=== PATIENT | female | born 1960 | race African-American/Black ===

== ENCOUNTER 2017-04-14 19:12 | Inpatient (IN) | payer OTHER ==
[~2017-04-14] VITALS: Ht 172.7 cm; Wt 120.8 kg
[2017-04-14 20:17] LABS: BASOPHIL % 1.9 % (0-2); PLATELET COUNT 190 x10^3mcL (130-400)
[2017-04-14 20:18] LABS: RED CELL DISTRIBUTION WIDTH 17.3 % (11.5-14.5)
[2017-04-14 20:37] LABS: BILIRUBIN TOTAL 0.3 mg/dL (0.20-1.00); CALCIUM 8.8 mg/dL (8.5-10.1); CARBON DIOXIDE 26.7 mmol/L (21-32); CREATININE SERUM 1.1 mg/dL (0.6-1.0); POTASSIUM SERUM 3.7 mmol/L (3.5-5.1); TOTAL PROTEIN, SERUM 7.3 g/dL (6.4-8.2)
[2017-04-14 20:47] LABS: ALBUMIN 3.1 g/dL (3.4-5.0)
[2017-04-14 20:56] LABS: CK-MB 0.5 ng/mL (0-3.6)
[2017-04-14 21:45] VITALS: BP 181/110
[2017-04-14 22:57] LABS: AMYLASE 38 U/L (25-115); CHOLESTEROL 177 mg/dL (<200); CHOLESTEROL/HDL RATIO 4.8; HDL CHOLESTEROL 37 mg/dL (40-60); LIPASE 141 IU/L (73-393); MAGNESIUM 1.8 mg/dL (1.8-2.4); PHOSPHOROUS 2.9 mg/dL (2.5-4.9)
[2017-04-14 22:59] LABS: TRIGLYCERIDES 540 mg/dL (<150)
[2017-04-14 23:06] LABS: FREE T4 1.18 ng/dL (0.76-1.46); T4(THYROXINE) 8.3 ug/dL (4.7-13.3)
[2017-04-14 23:51] LABS: T3 TOTAL 1.02 ng/mL
[2017-04-15 08:54] LABS: CALCIUM 8.4 mg/dL (8.5-10.1); CARBON DIOXIDE 24.9 mmol/L (21-32); CHLORIDE SERUM 105 mmol/L (98-107); CREATININE SERUM 0.8 mg/dL (0.6-1.0); GFR1 > 60 mL/min; GLUCOSE SERUM 352 mg/dL (74-106); POTASSIUM SERUM 3.6 mmol/L (3.5-5.1); SODIUM SERUM 140 mmol/L (136-145)
[2017-04-15 08:55] LABS: BASOPHIL % 0.4 % (0-2); PLATELET COUNT 193 x10^3mcL (130-400)
[2017-04-15 09:57] LABS: RED CELL DISTRIBUTION WIDTH 17.9 % (11.5-14.5)
[2017-04-15 10:54] VITALS: BP 135/60; BP 176/98
[2017-04-15 12:33] LABS: microscopic required? NO
[2017-04-15 12:45] LABS: AMPHETAMINE QUAL UR NONE DETECTED (NEG <=1000)
[2017-04-15 12:52] LABS: urine erythrocyte NEGATIVE (NEGATIVE)
[2017-04-15 14:14] VITALS: BP 158/89
[2017-04-15 17:43] VITALS: BP 158/91
[2017-04-15 20:52] VITALS: BP 168/91
[2017-04-16] MEDS ORDERED: LOSARTAN POTASS50 M1 PO (00:01)
[2017-04-16] MEDS ORDERED: NIFEDIPINE30 MG PO (00:02)
[2017-04-16 05:49] VITALS: BP 157/89
[2017-04-16 06:10] LABS: BASOPHIL % 0.4 % (0-2); PLATELET COUNT 184 x10^3mcL (130-400)
[2017-04-16 06:21] LABS: CALCIUM 8.4 mg/dL (8.5-10.1); CARBON DIOXIDE 26.3 mmol/L (21-32); CHLORIDE SERUM 103 mmol/L (98-107); CREATININE SERUM 0.8 mg/dL (0.6-1.0); GFR1 > 60 mL/min; GLUCOSE SERUM 251 mg/dL (74-106); POTASSIUM SERUM 3.7 mmol/L (3.5-5.1); SODIUM SERUM 133 mmol/L (136-145)
[2017-04-16 06:37] LABS: RED CELL DISTRIBUTION WIDTH 17.6 % (11.5-14.5)
[2017-04-16 09:46] VITALS: BP 170/74
[2017-04-16] MEDS ORDERED: NIT0.4 SL (10:17)
[2017-04-16] MEDS ORDERED: LIPI10 PO (10:18)
[2017-04-16] MEDS ORDERED: ECO81 PO (10:21)
[2017-04-16] MEDS ORDERED: GLU5 PO (11:02)
[2017-04-16] MEDS ORDERED: METFORMIN HCL1000 MG PO (11:02)
[2017-04-16 11:30] VITALS: BP 178/96
[2017-04-16 12:34] VITALS: BP 177/93
[2017-04-16 14:17] VITALS: BP 186/92
[2017-04-16 15:53] VITALS: BP 149/91
== END 2017-04-16 16:35 | disposition home or self-care (01) | DRG 206 ==
LOC: ED 19:12 → DU 20:55
PROVIDERS: Emergency Medicine; ADMIT Family Medicine
DX: M94.0 Chondrocostal junction syndrome [Tietze] (principal); D68.69 Other thrombophilia; Z68.41 Body mass index [BMI] 40.0-44.9, adult; E44.1 Mild protein-calorie malnutrition; E11.65 Type 2 diabetes mellitus with hyperglycemia; E78.5 Hyperlipidemia, unspecified; I10 Essential (primary) hypertension; Z86.718 Personal history of other venous thrombosis and embolism; Z88.0 Allergy status to penicillin; Z82.49 Family history of ischemic heart disease and other diseases of the circulatory system; Z82.3 Family history of stroke; F17.200 Nicotine dependence, unspecified, uncomplicated; E66.9 Obesity, unspecified
CPT/HCPCS: 82962; 83880; 84439; 85378; J1815; J3490; J7030; J7040; Q0092

== ENCOUNTER 2019-01-11 12:43 | Inpatient (IN) | payer OTHER ==
[~2019-01-11] VITALS: Ht 172.7 cm; Wt 136.1 kg
[~2019-01-11 12:43] MED LIST: ECO81 PO; GLU5 PO; LIPI10 PO; LOSARTAN POTASS50 M1 PO; METFORMIN HCL1000 MG PO; NIFEDIPINE30 MG PO; NIT0.4 SL
[2019-01-11 12:53] VITALS: Ht 172.7 cm; Wt 136.1 kg
--- NOTE | 2019-01-11 13:20 | NUR ---
PT BROUGHT IN BY SPOUSE WITH C/O WORSENING SOB PAST 3 DAYS AT BEDSIDE PT IS AAOX4. RESPS E/U. SKIN IS PINK, WARM AND DRY. PERRLA. PT PLACED ON MONITOR. BED RAILS UP X1 FOR SAFETY. PT ORIENTED TO ROOM, USE OF CALL LANG AND BED IN LOWEST POSITION. PT IS CALM AND COOPERATIVE. PT AMBULATED FROM LOBBY TO ED WITH STEADY GAIT. PT AWAITING MSE.
--- NOTE | 2019-01-11 13:21 | NUR ---
ED PHYSICIAN AT BEDSIDE FOR PATIENT EVALUATION. MEDICAL SCREENING EXAMINATION COMPLETED BY ED PHYSICIAN DR. BELL.
--- NOTE | 2019-01-11 13:28 | NUR ---
REPORT RECEIVED FROM Noel IVY RN
--- NOTE | 2019-01-11 13:38 | NUR ---
LAB AT BEDSIDE FOR DRAW
[2019-01-11 13:52] LABS: BASOPHIL % 1.2 % (0-2); PLATELET COUNT 264 x10^3mcL (130-400)
[2019-01-11 14:03] LABS: CALCIUM 8.9 mg/dL (8.5-10.1); CARBON DIOXIDE 27.9 mmol/L (21-32); CHLORIDE SERUM 105 mmol/L (98-107); CREATININE SERUM 0.7 mg/dL (0.6-1.0); GFR1 > 60 mL/min; GLUCOSE SERUM 125 mg/dL (74-106); POTASSIUM SERUM 3.8 mmol/L (3.5-5.1); SODIUM SERUM 142 mmol/L (136-145)
[2019-01-11 14:07] LABS: ALBUMIN 3.5 g/dL (3.4-5.0); ALKALINE PHOSPHATASE 108 U/L (46-116); ALT/SGPT 29 U/L (14-59); AST/SGOT 18 U/L (15-37); BILIRUBIN TOTAL 0.5 mg/dL (0.20-1.00); TOTAL PROTEIN, SERUM 7.9 g/dL (6.4-8.2)
--- NOTE | 2019-01-11 14:15 | NUR ---
AMB BACK FROM RESTROOM. PLACED BACK ON FULL MONITORS.
--- NOTE | 2019-01-11 14:23 | NUR ---
REPORT GIVEN TO Noel IVY RN
--- NOTE | 2019-01-11 15:31 | NUR ---
PT IS SITTING IN SEMI FOWLERS ON BED WATCHING TV. NO ACUTE DISTRESS NOTED AEB RESPS E/U, SKIN IS PINK, WARM AND DRY. PT IS CALM AND COOPERATIVE. SKIN IS PINK AND WARM. PT STS "I DON'T FEEL SOB ANYMORE". CALL LIGHT WITHIN REACH.
[2019-01-11 15:43] LABS: CHOLESTEROL/HDL RATIO 3.5
[2019-01-11 15:51] LABS: FREE T4 1.11 ng/dL (0.76-1.46); FREE THYROXINE INDEX 3.4 ug/dL (1.4-4.5); T3 TOTAL 1.43 ng/mL; T4(THYROXINE) 9.7 ug/dL (4.7-13.3)
--- NOTE | 2019-01-11 16:30 | NUR ---
REPORT HAND-OFF TO GABRIEL ABREU FROM TELE UNIT.
[2019-01-11 16:43] VITALS: BP 168/93
--- NOTE | 2019-01-11 16:55 | NUR ---
RECEIVED PT FROM ER. PT ADMIT FOR ACCELERATED HTN, PT IS A/O X4, VERBAL RESPONSIVE, ABLE TO TELL WHAT SHE NEEDS. LUNG SOUND DIM ISABEL, DENY ANY SOB AT THIS MOMENT. PO2 97% IN ROOM AIR, PT IS ON TELE 7, NSR, DENY ANY CHEST PAIN OR DISCOMFORT, BOWEL SOUND PRESENT ALL 4 QUADRANTS, NO DISTENTION, NO TENDER. PEDAL PULSE PRESENT BOTH FEET, TRACE EDEMA BLE. IV AT LEFT HAND, NO LEAKING, NO INFILTRATION. ALL ADLS ASSIST, ALL NEED MET, CALL LIGHT IN REACH, WILL CONTINUE TO MONITOR.
--- NOTE | 2019-01-11 17:51 | NUR ---
AT 1630 - TOOK OVER CARE OF PATIENT. ADMITTED WITH ACCELERATED HYPERTENSION. BP NOW 168/93 HR 90'S. SINUS RHYTHM. NO C/O CHEST PAIN. BLOOD GLUCOSE LEVEL 107. AT 1745 - EATING DINNER.
--- NOTE | 2019-01-11 19:30 | NUR ---
PT IS A/O x4. ON TELE #7, NSR. DENIES ANY CHEST PAIN OR PRESSURES. PULSES ARE PRESENT. TRACE EDEMA ON BLE. LUNGS CLEAR IN ALL FEILDS. ON RA, DENIES ANY SOB. EQUAL CHEST RISE AND FALL. BOWEL SOUNDS PRESENT x4. DENIES ANY ABD PAIN. SKIN WARM AND INTACT. DENIES ANY PAIN AT THIS TIME. IV ON LH INTACT AND PATENT. SALINE LOCKED AT THIS TIME. BED IS AT LOWEST SETTING. CALL LIGHT WITHIN REACH. WILL CONTINUE TO MONTIOR.
[2019-01-11 21:51] VITALS: BP 179/85
--- NOTE | 2019-01-11 23:00 | NUR ---
PT B/P IS 170/86 (110) HR 97. PT C/O SO. WILL GIVE PRN HYDRALAZINE PRN PER EMAR. CALLED INDUSTRY OPERATIONS INVESTIGATOR TO PRINT PRE MEDICATION STRIP.
[2019-01-11 23:42] VITALS: BP 138/72
--- NOTE | 2019-01-11 23:45 | NUR ---
HYDRALAZINE WAS PUSHED AND RECHECK OF B/P WAS 138/72, HR 94. PT STATES SO IS GONE. POST STRIP PRINTED. NO CHANGES IN EKG. WILL CONTINUE TO MONITOR.
[2019-01-12] VITALS (8 sets, daily range): BP systolic 145–188; BP diastolic 80–96
--- NOTE | 2019-01-12 06:26 | NUR ---
PT IS RESTING IN BED. DENIES ANY PAIN OR DISTRESS AT THIS TIME. IV INTACT AND PATENT. ASSISTED IN MORNING ADLS. BED IS AT LOWEST SETTING. CALL LIGHT WIHTIN REACH. WILL ENDORSE TO AM NURSE.
--- NOTE | 2019-01-12 07:30 | NUR ---
RECEIVED PATIENT FROM NIGHT NURSE. AWAKE, ALERT AND ORIENTED X 4. NO C/O PAIN OR HEADACHE AT THIS TIME. MONITOR SHOWING SINUS RHYTHM; RATE 90. NO ECTOPIES NOTED. IV INFUSING NS AT 50ML/HR.
[2019-01-12 09:13] LABS: BASOPHIL % 0.4 % (0-2); PLATELET COUNT 261 x10^3mcL (130-400); RED CELL DISTRIBUTION WIDTH 18.7 % (11.5-14.5)
[2019-01-12 09:41] LABS: CALCIUM 8.8 mg/dL (8.5-10.1); CARBON DIOXIDE 27.6 mmol/L (21-32); CHLORIDE SERUM 104 mmol/L (98-107); CREATININE SERUM 0.8 mg/dL (0.6-1.0); GFR1 > 60 mL/min; GLUCOSE SERUM 203 mg/dL (74-106); POTASSIUM SERUM 3.8 mmol/L (3.5-5.1); SODIUM SERUM 140 mmol/L (136-145)
--- NOTE | 2019-01-12 09:55 | NUR ---
AT 0830 - BIOPROCESSING MANUFACTURING TECHNICIAN [place] AT BEDSIDE. SPEAKING WITH PATIENT ABOUT PLAN OF TREATMENT. AT 0935 - RECEIVED CALL FROM LAB WITH ELEVATED TROPONIN LEVEL OF 0.106. NOTIFIED BIOPROCESSING MANUFACTURING TECHNICIAN [place]. APTIENT HAS A CARDIOLOGY CONSULT WITH DR REBOLLEDO. AT 0945 - BP 161/86 GIVEN BP MEDS SCHEDULED. ECHOCARDIOGRAM HAS BEEN COMPLETED. PATIENT C/O HEADACHE AND MEDICATED WITH TYLANOL PER EMAR.
--- NOTE | 2019-01-12 11:07 | NUR ---
PATIENT REPORTS SOME RELEIF OF HEADACHE AFTER RECEIVING TYLANOL. BLOOD GLUCOSE LEVEL 137.
--- NOTE | 2019-01-12 14:15 | NUR ---
BP 188/87. GIVEN HYDRALAZINE 10 MG IVP PER EMAR. SPOKE WITH CHEO [place] AND NOTIFIED HER OF PATIENT'S UNCONTROLLED BP. OKAY TO GIVE HYDRALAZINE. SHE WILL LOOK INTO ADDING OTHER MEDICATION FOR BP CONTROL.
--- NOTE | 2019-01-12 17:46 | NUR ---
AT 1425 - BP 169/80 15 MIN FOLLOWING IV HYDRALAZINE ADMINSITRATION. RESTING QUIETLY. AT 1535 - BP 157/80. PATIENT HAS BEEN GIVEN TYLANOL FOR PERSISTANT HEADACHE. AT 1704 - RECEIVED CALL FROM LAB WITH TROPONIN OF 0.108. AWAITING CARDIOLOGY CONSULT. PATIENT GIVEN IV LASIX 20 MG PER EMAR. BLOOD GLUCOSE 151. COVERED WITH 3 UNITS REGULAR INSULIN PER SLIDING SCALE. AT 1730 - BP NOW 151/88.
--- NOTE | 2019-01-12 19:35 | NUR ---
GOOD DIURESSI POST IV LASIX. RESTING QUIETLY. AMBULATES TO BATHROOM. IV INFUSING NS AT 50 ML/HR. CARE ENDORSED TO NIGHT NURSE.
--- NOTE | 2019-01-12 20:00 | NUR ---
AAO X4 VERBAL C/O MILD HEADACHE 4/10 TYLENOL PO GIVEN FOR HEADACHE COUPLE OR HOURS AGO WITH MINIMAL RELIEF, BP 164/88, NO DISTRESS LUNGS DIM @ THE BASES OCC DRY COUGHING NOTED, TELE #7 INPLACED SR IN THE MONITOR NO CP, IVF NS @ 50CC/HR IV ACCESS LAC PATENT NON INFIL, SHIFT ASSESSMENT DONE, CALL LIGHT AT REACH, ATTENDED NEEDS CONT TO MONITOR.
--- NOTE | 2019-01-12 21:25 | NUR ---
NORCO PO GIVEN PER PRN ORDER FOR PAIN, PT C/O GEN PAIN WITH HEADACHE 03/08 PER ASSESSMENT NO DISTRESS, REPOSITIONED SELF TO COMFORT, CONT TO MONITOR.
--- NOTE | 2019-01-13 01:37 | NUR ---
PT SLEEPING AT AT THIS TIME NO S/SX OF PAIN OR DISCOMFORTS CHECKED AT INTERVALS.
[2019-01-13 05:44] LABS: BASOPHIL % 0.5 % (0-2); PLATELET COUNT 263 x10^3mcL (130-400)
[2019-01-13 06:12] LABS: CALCIUM 9.1 mg/dL (8.5-10.1); CARBON DIOXIDE 25.9 mmol/L (21-32); CHLORIDE SERUM 102 mmol/L (98-107); CREATININE SERUM 0.8 mg/dL (0.6-1.0); GFR1 > 60 mL/min; GLUCOSE SERUM 142 mg/dL (74-106); POTASSIUM SERUM 3.7 mmol/L (3.5-5.1); SODIUM SERUM 139 mmol/L (136-145)
[2019-01-13 06:13] VITALS: BP 176/97
[2019-01-13 06:15] LABS: RED CELL DISTRIBUTION WIDTH 18.9 % (11.5-14.5)
--- NOTE | 2019-01-13 07:11 | NUR ---
BP 176/97 HR 89, PT IS ASYMTOMATIC, HYDRALAZINE 10 MG IVP ADMIN PER PRN ORDER, PT SLEPT WELL DURING THE SHIFT, WILL ENDORSE TO INCOMING SHIFT FOR F/U CARE.
--- NOTE | 2019-01-13 07:35 | NUR ---
RECEIVED PT IN NO ACUTE DISTRESS. SITTING UP ON THE SIDE OF THE BED EATING BREAKFAST. C/O HEADACHE. RESP EVEN AND UNLABORED ON RA. DENIES CP OR PRESSURE. IV TO LAC, NO REDNESS OR SWELLING. BED IN LOW POSITION, CALL LIGHT WITHIN REACH. WILL CONTINUE TO MONITOR.
[2019-01-13 08:22] VITALS: BP 121/58
--- NOTE | 2019-01-13 11:37 | NUR ---
PT RESTING IN BED WATCHING TV. NO ACUTE DISTRESS. BREATHING EVEN AND UNLABORED ON RA. IV TO L HAND, NO REDNESS OR SWELLING NOTED. VISITOR AT BEDSIDE. CALL LIGHT WITHIN REACH. WILL CONTINUE TO MONITOR.
[2019-01-13 11:43] VITALS: BP 139/76
[2019-01-13] MEDS ORDERED: LIPI10 PO (13:00)
[2019-01-13] MEDS ORDERED: GLIPIZIDE5 M2 PO (13:12)
[2019-01-13] MEDS ORDERED: HYDROCHLOROTH12.5 M2 PO (13:14)
[2019-01-13] MEDS ORDERED: CARVEDILOL6.25 M1 PO (13:15)
[2019-01-13] MEDS ORDERED: PRINIVIL20 MG PO (13:16)
--- NOTE | 2019-01-13 15:00 | NUR ---
PT DISCHARGED TO HOME IN NO ACUTE DISTRESS. AWAKE, ALERT, AND ORIENTED. VSS. TRANSPORTED VIA WHEELCHAIR. RX GIVEN. DISCHARGE EDUCATION PROVIDED, PT VERBALIZED UNDERSTANDING. INSTRUCTED PT TO FOLLOW UP WITH PCP. IV DC'D WITH CATHETER INTACT. TELE REMOVED. BELONGINGS WITH PT. [facility] STUDENT NURSE ACCOMPANIED PT TO LOBBY.
== END 2019-01-13 15:01 | disposition home or self-care (01) | DRG 280 ==
LOC: ED 12:43 → DU 14:58
PROVIDERS: Emergency Medicine; ADMIT Internal Medicine
DX: I11.0 Hypertensive heart disease with heart failure (principal); I21.A1 Myocardial infarction type 2; I50.31 Acute diastolic (congestive) heart failure; Z68.42 Body mass index [BMI] 45.0-49.9, adult; I16.1 Hypertensive emergency; E11.65 Type 2 diabetes mellitus with hyperglycemia; E66.9 Obesity, unspecified; Z79.4 Long term (current) use of insulin; F17.210 Nicotine dependence, cigarettes, uncomplicated; Z91.14 Patient's other noncompliance with medication regimen; Z86.718 Personal history of other venous thrombosis and embolism
CPT/HCPCS: 82962; 83880; 84439; 99406; J0360; J1644; J1940; J7030